=== PATIENT | female | born 1985 | race Caucasian/White ===

== ENCOUNTER 2022-09-23 00:21 | Emergency (ER) | payer BC, MEDICAID ==
[~2022-09-23] VITALS: Ht 177.8 cm; Wt 63.6 kg
[2022-09-23] MEDS ORDERED: IBUP800T27 PO (04:14)
[2022-09-23 05:05] VITALS: BP 147/80
== END 2022-09-23 05:04 | disposition home or self-care (01) ==
LOC: ER 00:21
DX: S22.41XA Multiple fractures of ribs, right side, initial encounter for closed fracture (principal); F17.210 Nicotine dependence, cigarettes, uncomplicated; Z90.710 Acquired absence of both cervix and uterus; Z79.1 Long term (current) use of non-steroidal anti-inflammatories (NSAID); Y04.2XXA Assault by strike against or bumped into by another person, initial encounter; Y93.89 Activity, other specified; Y92.89 Other specified places as the place of occurrence of the external cause; Y99.8 Other external cause status
CPT/HCPCS: 71101